=== PATIENT | male | born 1955 | race Caucasian/White ===

== ENCOUNTER 2024-04-26 08:21 | Emergency (ER) | payer BC ==
[~2024-04-26] VITALS: Ht 177.8 cm; Wt 91.5 kg
[2024-04-26] MEDS: LIDOCAINE 5% (LIDODERM) PATCH TD ONE (10:13)
[2024-04-26] MEDS ORDERED: MELO7.5T35 (10:15)
[2024-04-26] MEDS ORDERED: TADA20TA (10:15)
[2024-04-26] MEDS ORDERED: IBUP200T46 PO (10:16)
[2024-04-26] MEDS ORDERED: LIDO5DIS41 TOP (10:35)
[2024-04-26 10:36] VITALS: BP 143/91; TEMP 95.5; O2SAT 98
== END 2024-04-26 10:42 | disposition home or self-care (01) ==
LOC: M ED 08:21
DX: M16.12 Unilateral primary osteoarthritis, left hip (principal); M51.37 Other intervertebral disc degeneration, lumbosacral region; M51.36 Other intervertebral disc degeneration, lumbar region; M46.1 Sacroiliitis, not elsewhere classified; Z79.1 Long term (current) use of non-steroidal anti-inflammatories (NSAID); Z79.899 Other long term (current) drug therapy; M25.552 Pain in left hip